=== PATIENT | female | born 1930 | race Caucasian/White ===

== ENCOUNTER 2017-06-24 00:35 | Emergency (ER) | payer MEDICARE ==
[~2017-06-24] VITALS: Ht 160 cm; Wt 49.0 kg
[~2017-06-24 00:35] MED LIST: BENADRYL 25MG C25 MG PO
--- NOTE | 2017-06-24 01:02 | Emergency Room Report ---
History of Present Illness Time Seen by 005Zechariah Presenting Problem in Triage Pt arrived:Walked Presenting Problem:S/P TRIPPED AND FELL. 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 N Clinical Suspician of Infection? N Mental Status: 1 - Regular (Normal Baseline) Sepsis Risk:Low Sepsis Risk Have you (or family members/close friends) recently traveled outside the [place]? N If Yes, where/when: Have you had exposure to infectious disease within the past month? N TB? Other? Specify: Source patient, RN notes reviewed, family, old records Exam Limitations no limitations Comment tripped and fell with injury to rt upper ext with no hip or neck pain Cardiac Chest Pain Chest pain indicative of cardiac No Timing/Duration this evening Severity moderate ALLERGIES Coded Allergies: aspirin (Mild, NA-DIZZINESS 10/14/15) Home Medications Active Scripts Diphenhydramine Hcl (Benadryl 25MG CAP) 1-2 CAP PO Q6H PRN #20 CAP Prov: 05/11/14 History Medical History General CAD? No Angina: No [place]: No Hypertension? No Hyperlipidemia? No CHF? No DVT? No PE? No COPD? No Asthma? No Anemia? No GERD? No Gastric ulcers? No GI Bleed? No Hernia? No Thyroid Problems? No Hypothyroidism? No CVA? No Seizures? No Diabetes? No Renal Insuffiency? No UTI? No Stones? No BPH? No GB Disease: No Nephritic Syndrome? No Asplenia? No Hepatitis? No Sickle Cell Disease? No Arthritis? Yes Migraines? No Cataracts? Yes Glaucoma? No MRSA? No HIV? No TB? No Anxiety? No Depression? No Cancer? No Immunization Hx DT/Tetanus 279015 Flu Pneumonia Never Had Surgical Hx Previous Surgery?Y HYSTERECTOMY BILAT CATARACT REMOVAL Family History Family Hx Diabetes No CAD No Hypertension No Hyperlipidemia No Cancer Yes TB No Social History Smoking Hx Smoker: Never Smoker Tobacco: No Alcohol Alcohol: No Drugs none Review of Systems All Other Systems Reviewed and Negative Constitutional denies fever Eyes denies drainage ENT denies: ear discharge, epistaxis, throat pain. Respiratory denies cough, denies shortness of breath, denies wheezing Cardiovascular denies chest pain, denies syncope Gastrointestinal denies abdominal pain, denies diarrhea, denies vomiting Genitourinary denies: dysuria, frequency, hesitancy, hematuria. Musculoskeletal see HPI, denies back pain, joint pain, denies joint swelling, denies neck pain Skin denies rash Psychiatric/Neurological denies headache, denies seizure Physical Exam Vital Signs Vital Signs Date Time Temp Pulse Resp B/P Pulse O2 O2 Flow FiO2 Ox Delivery Rate 06/24 0114 76 20 167/97 95 06/24 0044 98.0 85 20 210/148 95 - WBC >12,000 or <4,000 or 10% bands? 2 or more SIRS Criteria Met? B/P:167/97 MAP:168 Creatinine >2.0? UA output<0.5ml/kg/hr for 2 hrs? Platelet count >100,000? Lactate >2.0mmol/1? INR >1.2 or PTT > than 60 sec? Evidence of Organ Dysfunction? Provider documented clinical suspician of infection? N Sepsis Criteria Count: 1 Sepsis Risk: Low Sepsis Risk General Appearance no apparent distress Eye Exam - bilateral eye PERRL, bilateral eye EOMI Ear, Nose, Throat normal ENT inspection Neck supple Respiratory Status No: respiratory distress. 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 No Results/Orders Orders Procedure Date/time Status HUMERUS-RT 06/24 0051 Active XRAY/CT/US XRAY/CT/US XRAY upper arm XR interpretation by reviewed by me Xray Results no fracture seen Departure Departure Time of Disposition 0122 Disposition DC Home or Self Care(routine) Clinical Impression Primary Impression: Sprain of upper arm, right Qualifiers: Encounter type: initial encounter Qualified Code: S43.401A - Unspecified sprain of right shoulder joint, initial encounter Secondary Impressions: Elevated BP without diagnosis of hypertension Condition STABLE Referrals Lalito Velazquez MD (Family) Patient Instructions DI for Arm Pain Additional Instructions see pcp as needed Discharge Counseling Counseled pt/family regarding diagnosis, test results, follow up needs ED Critical Care Critical Care No at 0121
--- NOTE | 2017-06-24 01:02 | Emergency Room Report ---
History of Present Illness Time Seen by 005Zechariah Presenting Problem in Triage Pt arrived:Walked Presenting Problem:S/P TRIPPED AND FELL. 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 N Clinical Suspician of Infection? N Mental Status: 1 - Regular (Normal Baseline) Sepsis Risk:Low Sepsis Risk Have you (or family members/close friends) recently traveled outside the [place]? N If Yes, where/when: Have you had exposure to infectious disease within the past month? N TB? Other? Specify: Source patient, RN notes reviewed, family, old records Exam Limitations no limitations Comment tripped and fell with injury to rt upper ext with no hip or neck pain Cardiac Chest Pain Chest pain indicative of cardiac No Timing/Duration this evening Severity moderate ALLERGIES Coded Allergies: aspirin (Mild, NA-DIZZINESS 10/14/15) Home Medications Active Scripts Diphenhydramine Hcl (Benadryl 25MG CAP) 1-2 CAP PO Q6H PRN #20 CAP Prov: 05/11/14 History Medical History General CAD? No Angina: No [place]: No Hypertension? No Hyperlipidemia? No CHF? No DVT? No PE? No COPD? No Asthma? No Anemia? No GERD? No Gastric ulcers? No GI Bleed? No Hernia? No Thyroid Problems? No Hypothyroidism? No CVA? No Seizures? No Diabetes? No Renal Insuffiency? No UTI? No Stones? No BPH? No GB Disease: No Nephritic Syndrome? No Asplenia? No Hepatitis? No Sickle Cell Disease? No Arthritis? Yes Migraines? No Cataracts? Yes Glaucoma? No MRSA? No HIV? No TB? No Anxiety? No Depression? No Cancer? No Immunization Hx DT/Tetanus [id number] Flu Pneumonia Never Had Surgical Hx Previous Surgery?Y HYSTERECTOMY BILAT CATARACT REMOVAL Family History Family Hx Diabetes No CAD No Hypertension No Hyperlipidemia No Cancer Yes TB No Social History Smoking Hx Smoker: Never Smoker Tobacco: No Alcohol Alcohol: No Drugs none Review of Systems All Other Systems Reviewed and Negative Constitutional denies fever Eyes denies drainage ENT denies: ear discharge, epistaxis, throat pain. Respiratory denies cough, denies shortness of breath, denies wheezing Cardiovascular denies chest pain, denies syncope Gastrointestinal denies abdominal pain, denies diarrhea, denies vomiting Genitourinary denies: dysuria, frequency, hesitancy, hematuria. Musculoskeletal see HPI, denies back pain, joint pain, denies joint swelling, denies neck pain Skin denies rash Psychiatric/Neurological denies headache, denies seizure Physical Exam Vital Signs Vital Signs Date Time Temp Pulse Resp B/P Pulse O2 O2 Flow FiO2 Ox Delivery Rate 06/24 0114 76 20 167/97 95 06/24 0044 98.0 85 20 210/148 95 - WBC >12,000 or <4,000 or 10% bands? 2 or more SIRS Criteria Met? B/P:167/97 MAP:168 Creatinine >2.0? UA output<0.5ml/kg/hr for 2 hrs? Platelet count >100,000? Lactate >2.0mmol/1? INR >1.2 or PTT > than 60 sec? Evidence of Organ Dysfunction? Provider documented clinical suspician of infection? N Sepsis Criteria Count: 1 Sepsis Risk: Low Sepsis Risk General Appearance no apparent distress Eye Exam - bilateral eye PERRL, bilateral eye EOMI Ear, Nose, Throat normal ENT inspection Neck supple Respiratory Status No: respiratory distress. 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 No Results/Orders Orders Procedure Date/time Status HUMERUS-RT 06/24 0051 Active XRAY/CT/US XRAY/CT/US XRAY upper arm XR interpretation by reviewed by me Xray Results no fracture seen Departure Departure Time of Disposition 0122 Disposition DC Home or Self Care(routine) Clinical Impression Primary Impression: Sprain of upper arm, right Qualifiers: Encounter type: initial encounter Qualified Code: S43.401A - Unspecified sprain of right shoulder joint, initial encounter Secondary Impressions: Elevated BP without diagnosis of hypertension Condition STABLE Referrals Lalito Velazquez MD (Family) Patient Instructions DI for Arm Pain Additional Instructions see pcp as needed Discharge Counseling Counseled pt/family regarding diagnosis, test results, follow up needs ED Critical Care Critical Care No at 012
[2017-06-24 01:28] VITALS: BP 179/65
--- NOTE | 2017-06-24 04:40 | RADIOLOGY REPORT PS360 ---
HUMERUS-RT HISTORY: Pain following injury S/P FALL C/O RIGHT UPPER ARM PAIN ORDERING PHYSICIAN: Lisa Chauhan MD PATIENT AGE: 86 years COMPARISON: None FINDINGS: No fracture or dislocation. No lytic or blastic change. There is normal mineralization. The joint spaces are well-preserved. No significant degenerative/arthritic changes. No erosive changes evident. IMPRESSION: Negative, no acute finding
== END 2017-06-24 01:34 | disposition home or self-care (01) ==
LOC: ER 00:35
DX: S43.401A Unspecified sprain of right shoulder joint, initial encounter (principal); W01.0XXA Fall on same level from slipping, tripping and stumbling without subsequent striking against object, initial encounter; Y92.009 Unspecified place in unspecified non-institutional (private) residence as the place of occurrence of the external cause

== ENCOUNTER 2017-06-27 18:14 | Emergency (ER) | payer MEDICARE ==
[~2017-06-27] VITALS: Ht 160 cm; Wt 511.7 kg
--- NOTE | 2017-06-27 18:30 | Emergency Room Report ---
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 N Clinical Suspician of Infection? N Mental Status: 1 - Regular (Normal Baseline) Sepsis Risk:Low Sepsis Risk Have you (or family members/close friends) recently traveled outside the [place]? N If Yes, where/when: Have you had exposure to infectious disease within the past month? TB? Other? Specify: Source patient, RN notes reviewed, family, old records Exam Limitations no limitations Comment trip fall with acute rt shoulder injury this pm Cardiac Chest Pain Chest pain indicative of cardiac No Timing/Duration this evening Severity moderate ALLERGIES Coded Allergies: aspirin (Mild, NA-DIZZINESS 10/14/15) History Medical History General CAD? No Angina: No CT: No Hypertension? No Hyperlipidemia? No CHF? No DVT? No PE? No COPD? No Asthma? No Anemia? No GERD? No Gastric ulcers? No GI Bleed? No Hernia? No Thyroid Problems? No Hypothyroidism? No CVA? No Seizures? No Diabetes? No Renal Insuffiency? No UTI? No Stones? No BPH? No GB Disease: No Nephritic Syndrome? No Asplenia? No Hepatitis? No Sickle Cell Disease? No Arthritis? Yes Migraines? No Cataracts? Yes Glaucoma? No MRSA? No HIV? No TB? No Anxiety? No Depression? No Cancer? No Immunization Hx DT/Tetanus [id number] Flu Pneumonia Never Had Surgical Hx Previous Surgery?Y HYSTERECTOMY BILAT CATARACT REMOVAL Family History Family Hx Diabetes No CAD No Hypertension No Hyperlipidemia No Cancer Yes TB No Social History Smoking Hx Smoker: Never Smoker Tobacco: No Alcohol Alcohol: No Drugs none Review of Systems All Other Systems Reviewed and Negative Constitutional denies fever Eyes denies drainage ENT denies: ear discharge, epistaxis, throat pain. Respiratory denies cough, denies shortness of breath, denies wheezing Cardiovascular denies chest pain, denies palpitations, denies syncope Gastrointestinal denies abdominal pain, denies diarrhea, denies vomiting Genitourinary denies: dysuria, frequency, hesitancy, hematuria. Musculoskeletal see HPI, denies back pain, joint pain, denies joint swelling Skin denies rash Psychiatric/Neurological denies headache, denies seizure Physical Exam Vital Signs Vital Signs Date Time Temp Pulse Resp B/P Pulse O2 O2 Flow FiO2 Ox Delivery Rate 06/27 1826 18 06/27 1821 97.7 97 18 96 - WBC >12,000 or <4,000 or 10% bands? 2 or more SIRS Criteria Met? B/P: MAP: Creatinine >2.0? UA output<0.5ml/kg/hr for 2 hrs? Platelet count >100,000? Lactate >2.0mmol/1? INR >1.2 or PTT > than 60 sec? Evidence of Organ Dysfunction? Provider documented clinical suspician of infection? N Sepsis Criteria Count: 1 Sepsis Risk: Low Sepsis Risk General Appearance no apparent distress Eye Exam - bilateral eye PERRL, bilateral eye EOMI Ear, Nose, Throat normal ENT inspection Neck non-tender Respiratory Status No: respiratory distress. 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 No Results/Orders Current Medication Orders Sig/Hernandez Start time Last Medication Dose Route Stop Time Status Admin Ketorolac 30 MG ONCE ONE 06/27 1830 DC 06/27 Tromethamine IM 06/27 Ketorolac 0 .STK-MED ONE 06/27 182 DC Tromethamine .ROUTE Orders Procedure Date/time Status [id number] VIEW-RT 06/27 1842 Active [id number]-3 VIEWS 06/27 1821 Active XRAY/CT/US XRAY/CT/US XRAY shoulder XR interpretation by reviewed by me Xray Results no fracture seen, abnormal (dislocated) Procedures Orthopedic/Inj/Splint IV Sedation Airway Assessment IV Sedation used? No Neck Extension: Limited Dentition: Edentulous Modified Mallampati Class: MP Class II ASA prior to sedation per Dr: Daniel Ortho Proc/Injections/Splints Risks/benefits discussed with pt/guardian? Yes IV conscious sedation No Reduction of dislocation Location shoulder Reductioni Method Traction/Counter traction. No: Kocker Maneuver, Weights lbs-, Nursemaid reduction w/sup. Comment improved after reduction Post reduction xrays completed and anatomic Yes Pre-Made Type sling/swathe Pre-Proc Neuro Vasc Exam normal Post-Proc Neuro Vasc Exam unchanged from pre-exam Complications none Departure Departure Time of Disposition 1856 Disposition DC Home or Self Care(routine) Clinical Impression Primary Impression: Anterior shoulder dislocation Qualifiers: Encounter type: initial encounter Laterality: right Qualified Code: S43.014A - Anterior dislocation of right humerus, initial encounter Condition STABLE Referrals Lalito Velazquez MD (Family) Patient Instructions DI for Shoulder Dislocation Additional Instructions advil/tyenol as needed and use as tolerated Discharge Counseling Counseled pt/family regarding diagnosis, test results, follow up needs ED Critical Care Critical Care No at 1912
--- NOTE | 2017-06-27 18:30 | Emergency Room Report ---
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 N Clinical Suspician of Infection? N Mental Status: 1 - Regular (Normal Baseline) Sepsis Risk:Low Sepsis Risk Have you (or family members/close friends) recently traveled outside the [place]? N If Yes, where/when: Have you had exposure to infectious disease within the past month? TB? Other? Specify: Source patient, RN notes reviewed, family, old records Exam Limitations no limitations Comment trip fall with acute rt shoulder injury this pm Cardiac Chest Pain Chest pain indicative of cardiac No Timing/Duration this evening Severity moderate ALLERGIES Coded Allergies: aspirin (Mild, NA-DIZZINESS 10/14/15) History Medical History General CAD? No Angina: No [place]: No Hypertension? No Hyperlipidemia? No CHF? No DVT? No PE? No COPD? No Asthma? No Anemia? No GERD? No Gastric ulcers? No GI Bleed? No Hernia? No Thyroid Problems? No Hypothyroidism? No CVA? No Seizures? No Diabetes? No Renal Insuffiency? No UTI? No Stones? No BPH? No GB Disease: No Nephritic Syndrome? No Asplenia? No Hepatitis? No Sickle Cell Disease? No Arthritis? Yes Migraines? No Cataracts? Yes Glaucoma? No MRSA? No HIV? No TB? No Anxiety? No Depression? No Cancer? No Immunization Hx DT/Tetanus 427774 Flu Pneumonia Never Had Surgical Hx Previous Surgery?Y HYSTERECTOMY BILAT CATARACT REMOVAL Family History Family Hx Diabetes No CAD No Hypertension No Hyperlipidemia No Cancer Yes TB No Social History Smoking Hx Smoker: Never Smoker Tobacco: No Alcohol Alcohol: No Drugs none Review of Systems All Other Systems Reviewed and Negative Constitutional denies fever Eyes denies drainage ENT denies: ear discharge, epistaxis, throat pain. Respiratory denies cough, denies shortness of breath, denies wheezing Cardiovascular denies chest pain, denies palpitations, denies syncope Gastrointestinal denies abdominal pain, denies diarrhea, denies vomiting Genitourinary denies: dysuria, frequency, hesitancy, hematuria. Musculoskeletal see HPI, denies back pain, joint pain, denies joint swelling Skin denies rash Psychiatric/Neurological denies headache, denies seizure Physical Exam Vital Signs Vital Signs Date Time Temp Pulse Resp B/P Pulse O2 O2 Flow FiO2 Ox Delivery Rate 06/27 1826 18 06/27 1821 97.7 97 18 96 - WBC >12,000 or <4,000 or 10% bands? 2 or more SIRS Criteria Met? B/P: MAP: Creatinine >2.0? UA output<0.5ml/kg/hr for 2 hrs? Platelet count >100,000? Lactate >2.0mmol/1? INR >1.2 or PTT > than 60 sec? Evidence of Organ Dysfunction? Provider documented clinical suspician of infection? N Sepsis Criteria Count: 1 Sepsis Risk: Low Sepsis Risk General Appearance no apparent distress Eye Exam - bilateral eye PERRL, bilateral eye EOMI Ear, Nose, Throat normal ENT inspection Neck non-tender Respiratory Status No: respiratory distress. 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 No Results/Orders Current Medication Orders Sig/Hernandez Start time Last Medication Dose Route Stop Time Status Admin Ketorolac 30 MG ONCE ONE 06/27 1830 DC 06/27 Tromethamine IM 06/27 Ketorolac 0 .STK-MED ONE 06/27 182 DC Tromethamine .ROUTE Orders Procedure Date/time Status [id number] VIEW-RT 06/27 1842 Active [id number]-3 VIEWS 06/27 1821 Active XRAY/CT/US XRAY/CT/US XRAY shoulder XR interpretation by reviewed by me Xray Results no fracture seen, abnormal (dislocated) Procedures Orthopedic/Inj/Splint IV Sedation Airway Assessment IV Sedation used? No Neck Extension: Limited Dentition: Edentulous Modified Mallampati Class: MP Class II ASA prior to sedation per Dr: Daniel Ortho Proc/Injections/Splints Risks/benefits discussed with pt/guardian? Yes IV conscious sedation No Reduction of dislocation Location shoulder Reductioni Method Traction/Counter traction. No: Kocker Maneuver, Weights lbs-, Nursemaid reduction w/sup. Comment improved after reduction Post reduction xrays completed and anatomic Yes Pre-Made Type sling/swathe Pre-Proc Neuro Vasc Exam normal Post-Proc Neuro Vasc Exam unchanged from pre-exam Complications none Departure Departure Time of Disposition 1856 Disposition DC Home or Self Care(routine) Clinical Impression Primary Impression: Anterior shoulder dislocation Qualifiers: Encounter type: initial encounter Laterality: right Qualified Code: S43.014A - Anterior dislocation of right humerus, initial encounter Condition STABLE Referrals Lalito Velazquez MD (Family) Patient Instructions DI for Shoulder Dislocation Additional Instructions advil/tyenol as needed and use as tolerated Discharge Counseling Counseled pt/family regarding diagnosis, test results, follow up needs ED Critical Care Critical Care No at 1912
[2017-06-27 19:13] VITALS: BP 147/75
--- NOTE | 2017-06-28 05:16 | RADIOLOGY REPORT PS360 ---
[id number] VIEWS HISTORY: Pain fall ORDERING PHYSICIAN: Lisa Chauhan MD PATIENT AGE: 86 years COMPARISON: None FINDINGS: There is anterior dislocation of the humeral head. No obvious fracture. No lytic or blastic change. IMPRESSION: Anterior dislocation humeral head
--- NOTE | 2017-06-28 05:16 | RADIOLOGY REPORT PS360 ---
[id number] VIEW-RT CLINICAL INDICATION: Shoulder pain, follow-up postreduction post reduction ORDERING PHYSICIAN: Lisa Chauhan MD PATIENT AGE: 86 years COMPARISON: 06/27/2017 FINDINGS: There is been interval reduction of the anterior shoulder dislocation. There is good position of the humeral head without obvious fracture. Minimal cortical irregularity involves the greater tuberosity which may be seen with rotator cuff disease. IMPRESSION: Reduced shoulder dislocation without obvious fracture
== END 2017-06-27 19:19 | disposition home or self-care (01) ==
LOC: ER 18:14
PROC: 0RSJXZZ Reposition Right Shoulder Joint, External Approach (ICD-10-PCS; principal; 2017-06-27)
DX: S43.014A Anterior dislocation of right humerus, initial encounter (principal); W01.0XXA Fall on same level from slipping, tripping and stumbling without subsequent striking against object, initial encounter; Y92.009 Unspecified place in unspecified non-institutional (private) residence as the place of occurrence of the external cause